=== PATIENT | female | born 1990 | race Caucasian/White ===

== ENCOUNTER 2021-02-15 01:19 | Emergency (ER) | payer OTHER ==
[2021-02-15] MEDS ORDERED: NA CHLORIDE 0.9% 1,000 ML ONE (01:36)
[2021-02-15] MEDS ORDERED: ONDANSETRON 4 MG/2 ML VIAL ONE (01:36)
[2021-02-15 02:06] LABS: Absolute Lymphocytes (CBC) 1.7 K/uL (0.7-4.9); Basophils % 0.3 % (0-1.3); Hematocrit 42.9 % (36.0-45.0); MPV 7.5 fL (7.6-11.3); RBC Red Blood Cell Count 4.79 M/uL (3.86-4.86)
[2021-02-15 02:23] LABS: Albumin 3.9 g/dL (3.4-5.0); Bilirubin Direct 0.1 mg/dL (0-0.2); Bilirubin Total 0.7 mg/dL (0.2-1.0); Potassium 3.4 mmol/L (3.5-5.1); Protein, Total 7.5 g/dL (6.4-8.2)
[2021-02-15] MEDS ORDERED: PROMETHAZINE INJ 25 MG/ML AMP ONE (02:29)
--- NOTE | 2021-02-15 02:29 | ER ---
Nurse's Notes [facility] Name: Sybil Suárez Age: 30 yrs Sex: Female : 1990 Arrival Date: 02/15/2021 Time: 01:21 Bed 15 Private MD: Diagnosis: Nausea with vomiting, unspecified;Diarrhea, unspecified Presentation: 02/15 01:33 Chief complaint: Patient states: she started vomiting approx 3 hours ago and hasn't bb been able to stop also having abdominal cramping 12/30 denies diarrhea. Coronavirus screen: vomiting. Client presents with at least one sign or symptom that may indicate coronavirus-19. Standard/surgical mask placed on the client. Ebola Screen: No symptoms or risks identified at this time. Initial Sepsis Screen: Does the patient meet any 2 criteria? No. Patient's initial sepsis screen is negative. Does the patient have a suspected source of infection? No. Patient's initial sepsis screen is negative. Risk Assessment: Do you want to hurt yourself or someone else? Patient reports no desire to harm self or others. Onset of symptoms was February 15, 2021. 01:33 Method Of Arrival: Ambulatory bb 01:33 Acuity: JANNA 3 bb Triage Assessment: 01:30 General: Appears distressed, Behavior is calm, cooperative. Pain: Denies pain. GI: mr2 Reports diarrhea, nausea, vomiting. 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 - Social history:: Smoking status: Patient denies any tobacco usage or history of. Patient/guardian denies using alcohol, street drugs. Screenin:30 Abuse screen: Denies threats or abuse. Denies injuries from another. Nutritional mr2 screening: No deficits noted. Tuberculosis screening: No symptoms or risk factors identified. Fall Risk None identified. Assessment: 01:30 GI: Pt is actively vomiting. mr2 Vital Signs: 01:33 BP 108 / 74; Pulse 71; Resp 16 S; Temp 97.4(O); Pulse Ox 94% on R/A; Weight 54.43 kg bb (R); Height 5 ft. 4 in. (162.56 cm) (R); Pain 10/10; 01:33 Body Mass Index 20.60 (54.43 kg, 162.56 cm) bb ED Course: 01:21 Patient arrived in ED. wm 01:30 Patient has correct armband on for positive identification. Bed in low position. Call mr2 light in reach. Side rails up X2. 01:30 No provider procedures requiring assistance completed. Inserted saline lock: 18 gauge mr2 in right antecubital area, using aseptic technique. 01:31 [facility] kb 01:31 Fortino Kline MD is Attending Physician. kb 01:33 Tom Mejias, RN is Primary Nurse. mr2 01:35 Triage completed. bb 01:35 Arm band placed on Patient placed in an exam room, on a stretcher, on pulse oximetry. bb Family accompanied patient. 02:47 IV discontinued. mr2 Administered Medications: 01:38 Drug: Zofran (Ondansetron) 4 mg Route: IVP; Site: left antecubital; mr2 01:38 Drug: NS 0.9% 1000 ml Route: IV; Rate: 1000 ml; Site: left antecubital; mr2 02:33 Drug: Phenergan (promethazine) 12.5 mg Route: IVP; Site: right antecubital; mr2 02:43 Drug: Bentyl (dicyclomine) 20 mg Route: PO; mr2 Outcome: 02:29 Discharge ordered by . kb 02:46 Discharged to home ambulatory, with family. mr2 02:46 Condition: stable 02:46 Discharge instructions given to patient, Instructed on discharge instructions, medication usage, Prescriptions given X 02:48 Patient left the ED. mr2 Signatures: Laekisha Robertson FNP-C FNP-Maame Kelley RN RN bb Kristin Carrera Tom Mejias RN RN mr2
--- NOTE | 2021-02-15 02:29 | EDPHYS ---
Physician Documentation [facility] Name: Sybil Suárez Age: 30 yrs Sex: Female : 1990 Arrival Date: 02/15/2021 Time: 01:21 Bed 15 Private MD: ED Physician Fortino Kline HPI: 02/15 01:40 This 30 yrs old Female presents to ER via Ambulatory with complaints of kb Nausea/Vomiting/Diarrhea. 01:40 The patient presents to the emergency department with nausea, vomiting. Onset: The kb symptoms/episode began/occurred 3 hour(s) ago. Possible causes: unknown. The symptoms are aggravated by nothing. The symptoms are alleviated by nothing. Associated signs and symptoms: Pertinent positives: nausea, vomiting, Pertinent negatives: abdominal pain, anorexia, belching, constipation, diarrhea, dysuria, fever, flatulence, GI bleeding, hematuria, vaginal discharge. Severity of symptoms: At their worst the symptoms were moderate in the emergency department the symptoms are unchanged. The patient has not experienced similar symptoms in the past. The patient has not recently seen a physician. 01:41 Pt reports nausea, vomiting and abd cramps for 3 hours. . 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 - Social history:: Smoking status: Patient denies any tobacco usage or history of. Patient/guardian denies using alcohol, street drugs. ROS: 01:40 Constitutional: Negative for fever, chills, and weight loss. kb 01:40 Abdomen/GI: Positive for nausea and vomiting, abdominal cramps, Negative for abdominal pain, diarrhea. 01:40 All other systems are negative. Exam: 01:40 Constitutional: This is a well developed, well nourished patient who is awake, alert, kb and in no acute distress. Head/Face: Normocephalic, atraumatic. ENT: Moist Mucous membranes Respiratory: Respirations even and unlabored. No increased work of breathing, no retractions or nasal flaring. Abdomen/GI: Soft, non-tender. No distention Skin: Warm, dry with normal turgor. Normal color. MS/ Extremity: Pulses equal, no cyanosis. Neurovascular intact. Full, normal range of motion. Neuro: Awake and alert, GCS 15, oriented to person, place, time, and situation. Moves all extremities. Normal gait. Psych: Awake, alert, with orientation to person, place and time. Behavior, mood, and affect are within normal limits. 01:40 Constitutional: The patient appears uncomfortable. kb Vital Signs: 01:33 BP 108 / 74; Pulse 71; Resp 16 S; Temp 97.4(O); Pulse Ox 94% on R/A; Weight 54.43 kg bb (R); Height 5 ft. 4 in. (162.56 cm) (R); Pain 10/10; 01:33 Body Mass Index 20.60 (54.43 kg, 162.56 cm) bb MDM: 01:31 Patient medically screened. kb 01:39 Data reviewed: vital signs, nurses notes. Data interpreted: Pulse oximetry: on room air kb is 94 %. Interpretation: normal. 01:48 ED course: Pt now having diarrhea as well. kb 02:26 Counseling: I had a detailed discussion with the patient and/or guardian regarding: the kb historical points, exam findings, and any diagnostic results supporting the discharge/admit diagnosis, lab results, the need for outpatient follow up, a family practitioner, to return to the emergency department if symptoms worsen or persist or if there are any questions or concerns that arise at home. ED course: Pt has no abd tenderness or pain. STates she has cramps only.. 02/15 01:34 Order name: Basic Metabolic Panel 02/15 01:34 Order name: CBC with Diff; Complete Time: 02:23 kb 02/15 01:34 Order name: Hepatic Function; Complete Time: 02:24 kb 02/15 01:34 Order name: Lipase; Complete Time: 02:24 kb 02/15 01:34 Order name: Basic Metabolic Panel; Complete Time: 02:24 EDMS 02/15 01:34 Order name: IV Saline Lock 02/15 01:34 Order name: Labs collected and sent 02/15 02:26 Order name: PO challenge kb Administered Medications: 01:38 Drug: Zofran (Ondansetron) 4 mg Route: IVP; Site: left antecubital; mr2 01:38 Drug: NS 0.9% 1000 ml Route: IV; Rate: 1000 ml; Site: left antecubital; mr2 02:33 Drug: Phenergan (promethazine) 12.5 mg Route: IVP; Site: right antecubital; mr2 02:43 Drug: Bentyl (dicyclomine) 20 mg Route: PO; mr2 Disposition Summary: 02/15/21 02:29 Discharge Ordered Location: Home kb Condition: Stable kb Diagnosis - Nausea with vomiting, unspecified kb - Diarrhea, unspecified kb Followup: kb - With: Emergency Department - When: As needed - Reason: Worsening of condition Followup: kb - With: Private Physician - When: 2 - 3 days - Reason: Recheck today's complaints, Continuance of care, Re-evaluation by your physician Discharge Instructions: - Discharge Summary Sheet kb - Food Choices to Help Relieve Diarrhea, Adult kb - Viral Gastroenteritis, Adult, [id number] kb Forms: - Medication Reconciliation Form kb - Thank You Letter kb - Antibiotic Education kb - Prescription Opioid Use kb Prescriptions: - Zofran 4 mg Oral Tablet - take 1 tablet by ORAL route every 6 hours As needed; 20 tablet; Refills: 0, kb Product Selection Permitted - dicyclomine 20 mg Oral Tablet - take 1 tablet by ORAL route 4 times per day As needed; 20 tablet; Refills: 0, kb Product Selection Permitted Addendum: 02/16/2021 06:09 Co-signature as Attending Physician, Fortino Kline MD. [facility] Signatures: Dispatcher [employer] Lakeisha Khan, ROCKY-C ROCKY-Maame Kelley, RN RN bb Fortino Kline MD MD 7 Tom Mejias RN RN mr2
[2021-02-15 03:06] VITALS: BP 108/74; TEMP 97.4; O2SAT 94
== END 2021-02-15 02:48 | disposition home or self-care (01) ==
LOC: ER 01:19
DX: R19.7 Diarrhea, unspecified (principal); F41.9 Anxiety disorder, unspecified
CPT/HCPCS: 85025; 80048; 36415; 80076; 83690; 99284; J2550; J7030; J2405